=== PATIENT | female | born 1945 | race Caucasian/White ===

== ENCOUNTER 2017-08-20 17:20 | Emergency (ER) | payer MEDICARE, BC ==
[~2017-08-20] VITALS: Ht 165.1 cm; Wt 80.0 kg
[2017-08-20] MEDS ORDERED: nitroGLYCERIN 0.4mg SUBLingual tab SL PRN (19:10)
[2017-08-20] MEDS ORDERED: hydrALAZINE 20mg/ml inj. IV ONE (19:10)
[2017-08-20] MEDS ORDERED: aspirin 81mg tab.chew PO ONE (19:10)
[2017-08-20 19:29] LABS: BASOPHILS # (AUTO) 0.1 X10'3 (0-0.2); BASOPHILS % (AUTO) 0.6 % (0-1); EOSINOPHILS # (AUTO) 0.1 X10'3 (0-0.9); EOSINOPHILS % (AUTO) 0.7 % (0-6); HEMATOCRIT 38.4 % (35.0-45.0); HEMOGLOBIN 13.1 g/dl (12.0-16.0); LYMPHOCYTES # (AUTO) 2.5 X10'3 (1.1-4.8); LYMPHOCYTES % (AUTO) 21.6 % (21-51); MEAN CORPUSCULAR HEMOGLOBIN 27.9 PG (27.0-31.0); MEAN CORPUSCULAR VOLUME 81.9 FL (78-98); MEAN PLATELET VOLUME 9.1 FL (7.4-10.4); MONOCYTES # (AUTO) 0.7 X10'3 (0-0.9); MONOCYTES % (AUTO) 6.3 % (2-12); NEUTROPHILS # (AUTO) 8.1 X10'3 (1.8-7.7); NEUTROPHILS % (AUTO) 70.8 % (42-75); PLATELET COUNT 267 X10'3 (140-440); RED BLOOD COUNT 4.69 X10'6 (4.20-5.60); RED CELL DISTRIBUTION WIDTH 16.6 % (11.5-14.5); WHITE BLOOD COUNT 11.4 X10'3 (4.5-11.0)
[2017-08-20 19:51] LABS: ALANINE AMINOTRANSFERASE 23 U/L (12-78); ALBUMIN/GLOBULIN RATIO 1.2 (1.1-1.5); ALKALINE PHOSPHATASE 108 IU/L (46-116); ANION GAP 9 (8-16); ASPARTATE AMINO TRANSFERASE 14 U/L (10-37); BILIRUBIN,TOTAL 0.4 MG/DL (0.1-1.0); BLOOD UREA NITROGEN 12 MG/DL (7-18); BUN/CREATININE RATIO 17.4 (6.6-38.0); CALCIUM 8.9 MG/DL (8.5-10.1); CHLORIDE 103 MMOL/L (99-107); CREATININE 0.69 MG/DL (0.40-0.90); GLUCOSE 100 MG/DL (70-104); MAGNESIUM 2.2 MG/DL (1.5-2.4); POTASSIUM 3.9 MMOL/L (3.5-5.1); SODIUM 143 MMOL/L (135-145); TOTAL CARBON DIOXIDE 31.2 MMOL/L (24-32); TOTAL PROTEIN 7.4 G/DL (6.4-8.2); eGFR 84 ML/MIN
[2017-08-20] MEDS ORDERED: HYDR-4069 PO (20:31)
[2017-08-20 20:43] VITALS: BP 145/73
== END 2017-08-20 20:43 | disposition home or self-care (01) ==
LOC: ER 17:21
DX: I10 Essential (primary) hypertension (principal); I25.2 Old myocardial infarction
CPT/HCPCS: 36415; 71045; 80053; 83735; 83880; 84484; 85025; 93005; 96374; 99285; J0360

== ENCOUNTER 2020-04-04 11:02 | Emergency (ER) | payer MEDICARE, BC ==
[~2020-04-04] VITALS: Ht 165.1 cm; Wt 91.9 kg
[~2020-04-04 11:02] MED LIST: AMIO200T61 PO; APIX5TAB3 PO; ASPI-611 PO; ATOR40TA72 PO; CARV-50 PO; CHOL10002 PO; GABA-530 PO; HYDR-3972 PO; LISI40TA4 PO; PARO40TA4 PO; SPIR25TA PO
[2020-04-04 12:03] LABS: BASOPHILS # (AUTO) 0.1 X10'3 (0-0.2); BASOPHILS % (AUTO) 0.7 % (0-1); EOSINOPHILS # (AUTO) 0.1 X10'3 (0-0.9); EOSINOPHILS % (AUTO) 1.6 % (0-6); HEMATOCRIT 38.4 % (35.0-45.0); HEMOGLOBIN 12.5 g/dl (12.0-16.0); LYMPHOCYTES # (AUTO) 1.8 X10'3 (1.1-4.8); MEAN CORPUSCULAR HEMOGLOBIN 27.1 PG (27.0-31.0); MEAN CORPUSCULAR HGB CONC 32.4 g/dL (33.0-36.5); MEAN CORPUSCULAR VOLUME 83.6 FL (78-98); MEAN PLATELET VOLUME 8.4 FL (7.4-10.4); MONOCYTES # (AUTO) 0.7 X10'3 (0-0.9); MONOCYTES % (AUTO) 8.8 % (2-12); NEUTROPHILS # (AUTO) 4.8 X10'3 (1.8-7.7); NEUTROPHILS % (AUTO) 64.9 % (42-75); PLATELET COUNT 497 X10'3 (140-440); RED CELL DISTRIBUTION WIDTH 16.1 % (11.5-14.5); WHITE BLOOD COUNT 7.4 X10'3 (4.5-11.0)
[2020-04-04 12:21] LABS: ALANINE AMINOTRANSFERASE 24 U/L (12-78); ALBUMIN 3.9 G/DL (3.4-5.0); ALKALINE PHOSPHATASE 110 IU/L (46-116); ANION GAP 6 (8-16); ASPARTATE AMINO TRANSFERASE 14 U/L (10-37); BILIRUBIN,TOTAL 0.5 MG/DL (0.1-1.0); BLOOD UREA NITROGEN 17 MG/DL (7-18); BUN/CREATININE RATIO 15.6 (6.6-38.0); CALCIUM 9.3 MG/DL (8.5-10.1); CHLORIDE 100 MMOL/L (99-107); CREATININE 1.09 MG/DL (0.40-0.90); GLUCOSE 99 MG/DL (70-104); SODIUM 138 MMOL/L (135-145); TOTAL CARBON DIOXIDE 31.7 MMOL/L (24-32); TOTAL PROTEIN 7.7 G/DL (6.4-8.2); eGFR 49 ML/MIN
[2020-04-04 14:08] LABS: CLARITY,URINE SLIGHTLY CLOUDY (Clear); COLOR,URINE YELLOW (Yellow); GLUCOSE, URINE NEGATIVE (Neg); KETONES,URINE NEGATIVE (Neg); LEUKOCYTE ESTERASE ,URINE SMALL (Neg); NITRITES, URINE NEGATIVE (Neg); OCCULT BLOOD,URINE NEGATIVE (Neg); PROTEIN,URINE NEGATIVE (Neg); UROBILINOGEN,URINE 0.2 E.U/dL (0.2-1.0)
[2020-04-04 14:14] LABS: UA COLLECTION TYPE CLN CATCH MIDSTREAM
[2020-04-04 14:19] LABS: BACTERIA,URINE FEW /HPF (Neg); SQUAMOUS EPITHELIAL CELL,UR MODERATE /LPF (FEW); TRANSITIONAL EPI CELLS,URINE FEW /HPF
[2020-04-04 14:20] LABS: RBC,URINE 0-2 /HPF (0-2)
[2020-04-04] MEDS ORDERED: CEPH500C5 PO (15:46)
[2020-04-04 15:51] VITALS: BP 165/55
== END 2020-04-04 16:21 | disposition home or self-care (01) ==
LOC: ER 11:03
DX: E04.1 Nontoxic single thyroid nodule (principal); N39.0 Urinary tract infection, site not specified; M51.87 Other intervertebral disc disorders, lumbosacral region; R06.02 Shortness of breath; M79.605 Pain in left leg; M79.604 Pain in right leg; R53.1 Weakness; I48.91 Unspecified atrial fibrillation; I10 Essential (primary) hypertension; I25.2 Old myocardial infarction; Z79.82 Long term (current) use of aspirin; Z79.2 Long term (current) use of antibiotics; Z79.899 Other long term (current) drug therapy
CPT/HCPCS: 36415; 71045; 72128; 72131; 80053; 81001; 83880; 84484; 85025; 87088; 93005; 99285

== ENCOUNTER 2020-10-17 10:05 | Outpatient (CLI) | payer MEDICARE, BC ==
[~2020-10-17 10:05] MED LIST changes: +AMIO200T27 PO; -AMIO200T61 PO; -APIX5TAB3 PO; -CARV-50 PO; +HYDR-4070 PO; +LISI40TA13 PO; -LISI40TA4 PO; -SPIR25TA PO; +SPIR25TA5 PO; +WARF3TAB56 PO; +metoprolol tartrate tablet PO
[2020-10-17 10:34] LABS: TOTAL HEMOGLOBIN 13.2 G/dl (12.0-16.0)
== END 2020-10-17 23:59 | disposition home or self-care (01) ==
LOC: RT 10:05
PROVIDERS: ATTEND Internal Medicine Cardiovascular Disease
DX: I51.7 Cardiomegaly (principal); R06.02 Shortness of breath; M48.56XA Collapsed vertebra, not elsewhere classified, lumbar region, initial encounter for fracture; M47.814 Spondylosis without myelopathy or radiculopathy, thoracic region; Z79.899 Other long term (current) drug therapy
CPT/HCPCS: 71046; 85018; 94010; 94727; 94729

== ENCOUNTER 2021-01-29 05:57 | Day surgery (SDC) | payer MEDICARE, BC ==
[2021-01-28 11:51] LABS: BASOPHILS # (AUTO) 0.1 X10'3 (0-0.2); BASOPHILS % (AUTO) 0.7 % (0-1); EOSINOPHILS # (AUTO) 0.2 X10'3 (0-0.9); HEMATOCRIT 36.8 % (35.0-45.0); HEMOGLOBIN 12.3 g/dl (12.0-16.0); LYMPHOCYTES # (AUTO) 1.6 X10'3 (1.1-4.8); LYMPHOCYTES % (AUTO) 19.8 % (21-51); MEAN CORPUSCULAR HGB CONC 33.4 g/dL (33.0-36.5); MEAN CORPUSCULAR VOLUME 83.7 FL (78-98); MEAN PLATELET VOLUME 8.9 FL (7.4-10.4); MONOCYTES # (AUTO) 0.8 X10'3 (0-0.9); MONOCYTES % (AUTO) 9.6 % (2-12); NEUTROPHILS # (AUTO) 5.6 X10'3 (1.8-7.7); NEUTROPHILS % (AUTO) 67.9 % (42-75); PLATELET COUNT 292 X10'3 (140-440); RED CELL DISTRIBUTION WIDTH 15.1 % (11.5-14.5); WHITE BLOOD COUNT 8.2 X10'3 (4.5-11.0)
[2021-01-28 12:05] LABS: PARTIAL THROMBOPLASTIN TIME 27 SECONDS (22-32)
[2021-01-28 12:07] LABS: ALBUMIN 3.9 G/DL (3.4-5.0); ANION GAP 11 (8-16); BLOOD UREA NITROGEN 16 MG/DL (7-18); BUN/CREATININE RATIO 15.7 (6.6-38.0); CALCIUM 8.5 MG/DL (8.5-10.1); CHLORIDE 104 MMOL/L (99-107); CREATININE 1.02 MG/DL (0.40-0.90); GLUCOSE 101 MG/DL (70-104); POTASSIUM 4.1 MMOL/L (3.5-5.1); SODIUM 143 MMOL/L (135-145); TOTAL CARBON DIOXIDE 28.3 MMOL/L (24-32); eGFR 53 ML/MIN
[~2021-01-29] VITALS: Ht 165.1 cm; Wt 93.0 kg
[2021-01-29] VITALS (11 sets, daily range): BP systolic 116–169; BP diastolic 43–81
[2021-01-29] MEDS ORDERED: cefazolin/dext.iso 2gm/100ml 100 ML IV ONE (06:15)
[2021-01-29] MEDS ORDERED: APIX5TAB3 PO (06:23)
[2021-01-29] MEDS ORDERED: NITR0.4T48 (06:23)
[2021-01-29] MEDS ORDERED: METO25TA6 PO (06:23)
[2021-01-29] MEDS ORDERED: OMEP20CA15 PO (06:25)
[2021-01-29] MEDS ORDERED: ceFAZolin 1000mg inj ONE (07:17)
[2021-01-29] MEDS ORDERED: fentaNYL/PF 50MCG/1 ML 2ML syringe ONE ×2 (07:18→08:57)
[2021-01-29] MEDS ORDERED: midazolam 1 mg/ML 2ml injection ONE ×2 (07:18→08:44)
[2021-01-29] MEDS ORDERED: LIDOcaine 1% W/epiNEPHrine 1:100,000 20ml vial ONE ×2 (07:18→08:26)
[2021-01-29] MEDS ORDERED: hydrALAZINE 20mg/ml inj. IV ONE (08:32)
[2021-01-29] MEDS ORDERED: HYDROmorphone 1 mg/ml syringe ONE (09:11)
[2021-01-29] MEDS ORDERED: HYDROcodone/acetaminophen 10/325mg tab PO PRN (10:15)
[2021-01-29] MEDS ORDERED: HYDROcodone/acetaminophen 5mg/325mg tablet PO PRN (10:15)
[2021-01-29] MEDS ORDERED: vancomycin/NS 1 GM ADD-VANTAGE 250 ML X 1 DOSE IV ONE (11:00)
== END 2021-01-29 16:00 | disposition home or self-care (01) ==
LOC: SSTAY O 05:57
PROVIDERS: ATTEND Internal Medicine Cardiovascular Disease
DX: I49.5 Sick sinus syndrome (principal); I48.91 Unspecified atrial fibrillation; I25.10 Atherosclerotic heart disease of native coronary artery without angina pectoris; I11.0 Hypertensive heart disease with heart failure; I50.9 Heart failure, unspecified; I25.2 Old myocardial infarction; M19.90 Unspecified osteoarthritis, unspecified site; G89.29 Other chronic pain; E78.49 Other hyperlipidemia; E66.9 Obesity, unspecified; Z68.34 Body mass index [BMI] 34.0-34.9, adult; Z79.82 Long term (current) use of aspirin; Z79.01 Long term (current) use of anticoagulants; Z79.899 Other long term (current) drug therapy; Z90.710 Acquired absence of both cervix and uterus; Z98.890 Other specified postprocedural states; Z82.49 Family history of ischemic heart disease and other diseases of the circulatory system; Z80.6 Family history of leukemia
CPT/HCPCS: 33208; 36415; 71046; 80048; 85025; 85610; 85730; 93005; 99152; 99153; C1785; C1894; C1898; J0360; J0690; J1170; J2250; J3010; J3370; A4565; A4620; A6258; A6449

== ENCOUNTER 2021-09-04 06:59 | Day surgery (SDC) | payer MEDICARE, BC ==
[2021-09-02 10:27] LABS: BASOPHILS % (AUTO) 0.6 % (0-1); EOSINOPHILS # (AUTO) 0.1 X10'3 (0-0.9); EOSINOPHILS % (AUTO) 1.2 % (0-6); HEMATOCRIT 37.5 % (35.0-45.0); HEMOGLOBIN 12.4 g/dl (12.0-16.0); MEAN CORPUSCULAR HEMOGLOBIN 27.7 PG (27.0-31.0); MEAN PLATELET VOLUME 8.9 FL (7.4-10.4); MONOCYTES # (AUTO) 0.7 X10'3 (0-0.9); MONOCYTES % (AUTO) 9.4 % (2-12); NEUTROPHILS # (AUTO) 5.9 X10'3 (1.8-7.7); NEUTROPHILS % (AUTO) 75.8 % (42-75); PLATELET COUNT 348 X10'3 (140-440); RED BLOOD COUNT 4.47 X10'6 (4.20-5.60); WHITE BLOOD COUNT 7.8 X10'3 (4.5-11.0)
[2021-09-02 10:44] LABS: ALBUMIN 3.7 G/DL (3.4-5.0); ANION GAP 10 (8-16); BLOOD UREA NITROGEN 17 MG/DL (7-18); CALCIUM 9.1 MG/DL (8.5-10.1); CHLORIDE 102 MMOL/L (99-107); GLUCOSE 99 MG/DL (70-104); POTASSIUM 4.6 MMOL/L (3.5-5.1); SODIUM 139 MMOL/L (135-145); TOTAL CARBON DIOXIDE 26.8 MMOL/L (24-32); eGFR 54 ML/MIN
[2021-09-04] VITALS (12 sets, daily range): BP systolic 102–135; BP diastolic 46–85
[~2021-09-04] VITALS: Ht 165.1 cm; Wt 87.0 kg
[~2021-09-04 06:59] MED LIST changes: +APIX5TAB3 PO; +METO25TA6 PO; +NITR0.4T48; +OMEP20CA15 PO; -WARF3TAB56 PO; -metoprolol tartrate tablet PO
[2021-09-04] MEDS ORDERED: amiodarone 150mg/dext, iso-os 100 ML IV ONE (07:20)
[2021-09-04] MEDS ORDERED: MIDAZolam 1mg/ml 10ml vial IV ONE (07:20)
[2021-09-04] MEDS ORDERED: morphine 10mg/ml inj. IV ONE (07:20)
[2021-09-04] MEDS ORDERED: atropine 0.1mg/ml 10ml syringe IV ONE (07:20)
[2021-09-04] MEDS ORDERED: HYDR-3965 PO (08:42)
[2021-09-04] MEDS ORDERED: SPIR25TA5 PO (08:42)
== END 2021-09-04 11:45 | disposition home or self-care (01) ==
LOC: SSTAY O 06:59
PROVIDERS: ATTEND Internal Medicine Cardiovascular Disease
DX: I48.91 Unspecified atrial fibrillation (principal); I25.10 Atherosclerotic heart disease of native coronary artery without angina pectoris; I11.0 Hypertensive heart disease with heart failure; I50.9 Heart failure, unspecified; I25.2 Old myocardial infarction; E78.5 Hyperlipidemia, unspecified; M19.90 Unspecified osteoarthritis, unspecified site; G89.29 Other chronic pain; E66.9 Obesity, unspecified; Z68.31 Body mass index [BMI] 31.0-31.9, adult; Z79.899 Other long term (current) drug therapy; Z79.01 Long term (current) use of anticoagulants; Z98.890 Other specified postprocedural states; Z79.82 Long term (current) use of aspirin
CPT/HCPCS: 36415; 80048; 85025; 85610; 92960; 93005; J2250; J2274

== ENCOUNTER 2021-10-23 12:00 | Outpatient (CLI) | payer MEDICARE, BC ==
[~2021-10-23 12:00] MED LIST changes: +HYDR-3965 PO; -HYDR-3972 PO
== END 2021-10-23 23:59 | disposition home or self-care (01) ==
LOC: CARD DIAG 12:00
PROVIDERS: ATTEND Internal Medicine Cardiovascular Disease
DX: I05.8 Other rheumatic mitral valve diseases (principal); R91.8 Other nonspecific abnormal finding of lung field; I48.91 Unspecified atrial fibrillation; Z79.82 Long term (current) use of aspirin; Z96.611 Presence of right artificial shoulder joint; Z79.899 Other long term (current) drug therapy
CPT/HCPCS: 71046; 93306; 94010; 94727; 94729

== ENCOUNTER 2022-02-08 07:17 | Emergency (ER) | payer MEDICARE, OTHER ==
[~2022-02-08] VITALS: Ht 165.1 cm; Wt 92.8 kg
[2022-02-08 08:48] LABS: BASOPHILS % (AUTO) 0.5 % (0-1); EOSINOPHILS % (AUTO) 0.6 % (0-6); HEMATOCRIT 34.3 % (35.0-45.0); HEMOGLOBIN 11.3 g/dl (12.0-16.0); LYMPHOCYTES # (AUTO) 0.5 X10'3 (1.1-4.8); MEAN CORPUSCULAR HEMOGLOBIN 27.8 PG (27.0-31.0); MEAN CORPUSCULAR HGB CONC 33.1 g/dL (33.0-36.5); MEAN CORPUSCULAR VOLUME 84.1 FL (78-98); MEAN PLATELET VOLUME 8.9 FL (7.4-10.4); MONOCYTES # (AUTO) 0.5 X10'3 (0-0.9); MONOCYTES % (AUTO) 6.8 % (2-12); NEUTROPHILS # (AUTO) 6.4 X10'3 (1.8-7.7); NEUTROPHILS % (AUTO) 85.1 % (42-75); PLATELET COUNT 291 X10'3 (140-440); RED BLOOD COUNT 4.07 X10'6 (4.20-5.60); RED CELL DISTRIBUTION WIDTH 15.4 % (11.5-14.5); WHITE BLOOD COUNT 7.5 X10'3 (4.5-11.0)
[2022-02-08 09:02] LABS: ALANINE AMINOTRANSFERASE 47 U/L (12-78); ALBUMIN 3.9 G/DL (3.4-5.0); ALBUMIN/GLOBULIN RATIO 1.1 (1.1-1.5); ALKALINE PHOSPHATASE 122 IU/L (46-116); ANION GAP 8 (8-16); ASPARTATE AMINO TRANSFERASE 26 U/L (10-37); BILIRUBIN,TOTAL 0.7 MG/DL (0.1-1.0); BLOOD UREA NITROGEN 11 MG/DL (7-18); BUN/CREATININE RATIO 9.2 (6.6-38.0); CALCIUM 9.1 MG/DL (8.5-10.1); CHLORIDE 101 MMOL/L (99-107); GLUCOSE 103 MG/DL (70-104); POTASSIUM 4.5 MMOL/L (3.5-5.1); SODIUM 139 MMOL/L (135-145); TOTAL CARBON DIOXIDE 30.1 MMOL/L (24-32); TOTAL PROTEIN 7.5 G/DL (6.4-8.2); eGFR 44 ML/MIN
[2022-02-08] MEDS ORDERED: furosemide 40mg/4ml inj IV ONE (10:00)
[2022-02-08] MEDS ORDERED: BEBTELOVIMAB 175 MG/2 ML VIAL IV ONE (14:10)
[2022-02-08 14:25] VITALS: BP 177/99
--- NOTE | 2022-02-08 14:30 | NUR ---
Pt given and understands d/c instructions. IV d/c instructions. Ambulatory with a steady gait.
== END 2022-02-08 14:30 | disposition home or self-care (01) ==
LOC: ER 07:18
DX: U07.1 COVID-19 (principal); I11.0 Hypertensive heart disease with heart failure; E78.00 Pure hypercholesterolemia, unspecified; Z79.899 Other long term (current) drug therapy
CPT/HCPCS: 36415; 71045; 80053; 83880; 84484; 85025; 87502; 87503; 87811; 93005; 96374; 99285; J1940; M0222; Q0222

== ENCOUNTER 2022-03-20 07:26 | Day surgery (SDC) | payer MEDICARE, OTHER ==
[2022-03-19 12:11] LABS: BASOPHILS # (AUTO) 0.1 X10'3 (0-0.2); BASOPHILS % (AUTO) 0.8 % (0-1); EOSINOPHILS # (AUTO) 0.2 X10'3 (0-0.9); EOSINOPHILS % (AUTO) 1.9 % (0-6); HEMATOCRIT 35.1 % (35.0-45.0); HEMOGLOBIN 11.5 g/dl (12.0-16.0); LYMPHOCYTES # (AUTO) 1.1 X10'3 (1.1-4.8); LYMPHOCYTES % (AUTO) 11.7 % (21-51); MEAN CORPUSCULAR HGB CONC 32.6 g/dL (33.0-36.5); MEAN CORPUSCULAR VOLUME 82.9 FL (78-98); MEAN PLATELET VOLUME 8.8 FL (7.4-10.4); MONOCYTES # (AUTO) 0.8 X10'3 (0-0.9); MONOCYTES % (AUTO) 8.2 % (2-12); NEUTROPHILS # (AUTO) 7.2 X10'3 (1.8-7.7); NEUTROPHILS % (AUTO) 77.4 % (42-75); PLATELET COUNT 344 X10'3 (140-440); RED BLOOD COUNT 4.24 X10'6 (4.20-5.60); RED CELL DISTRIBUTION WIDTH 16.6 % (11.5-14.5); WHITE BLOOD COUNT 9.3 X10'3 (4.5-11.0)
[2022-03-19 12:30] LABS: ALBUMIN 3.8 G/DL (3.4-5.0); ANION GAP 8 (8-16); BLOOD UREA NITROGEN 14 MG/DL (7-18); BUN/CREATININE RATIO 14.1 (6.6-38.0); CALCIUM 9.2 MG/DL (8.5-10.1); CHLORIDE 104 MMOL/L (99-107); CREATININE 0.99 MG/DL (0.40-0.90); GLUCOSE 93 MG/DL (70-104); POTASSIUM 4.2 MMOL/L (3.5-5.1); SODIUM 140 MMOL/L (135-145); TOTAL CARBON DIOXIDE 27.7 MMOL/L (24-32); eGFR 55 ML/MIN
[2022-03-20] VITALS (13 sets, daily range): BP systolic 131–160; BP diastolic 62–100
[~2022-03-20] VITALS: Ht 165.1 cm; Wt 91.9 kg
[2022-03-20] MEDS ORDERED: MIDAZolam 1mg/ml 10ml vial IV ONE (07:45)
[2022-03-20] MEDS ORDERED: LORazepam 0.5 MG tablet PO ONE (07:45)
[2022-03-20] MEDS ORDERED: diphenhydrAMINE 25mg capsule PO ONE (07:45)
[2022-03-20] MEDS ORDERED: amiodarone 150mg/dext, iso-os 100 ML IV ONE (07:45)
[2022-03-20] MEDS ORDERED: morphine 10mg/ml inj. IV ONE (07:45)
[2022-03-20] MEDS ORDERED: atropine 0.1mg/ml 10ml syringe IV ONE (07:45)
== END 2022-03-20 10:10 | disposition home or self-care (01) ==
LOC: SSTAY O 07:26
PROVIDERS: ATTEND Internal Medicine Cardiovascular Disease
DX: I48.0 Paroxysmal atrial fibrillation (principal); I49.5 Sick sinus syndrome; I10 Essential (primary) hypertension; E78.5 Hyperlipidemia, unspecified; Z95.0 Presence of cardiac pacemaker; I25.10 Atherosclerotic heart disease of native coronary artery without angina pectoris; Z79.899 Other long term (current) drug therapy; Z98.890 Other specified postprocedural states; Z79.01 Long term (current) use of anticoagulants; Z90.710 Acquired absence of both cervix and uterus
CPT/HCPCS: 36415; 80048; 85025; 85610; 92960; 93005; J2250; J2274; J7030; A4620

== ENCOUNTER 2022-09-09 06:58 | Inpatient (IN) | payer MEDICARE, OTHER ==
[2022-09-01 16:32] LABS: BASOPHILS % (AUTO) 0.5 % (0-1); EOSINOPHILS # (AUTO) 0.1 X10'3 (0-0.9); EOSINOPHILS % (AUTO) 1.8 % (0-6); LYMPHOCYTES # (AUTO) 1.2 X10'3 (1.1-4.8); LYMPHOCYTES % (AUTO) 16.7 % (21-51); MEAN CORPUSCULAR HEMOGLOBIN 28.6 PG (27.0-31.0); MEAN CORPUSCULAR HGB CONC 32.6 g/dL (33.0-36.5); MEAN CORPUSCULAR VOLUME 87.8 FL (78-98); MEAN PLATELET VOLUME 8.6 FL (7.4-10.4); MONOCYTES # (AUTO) 0.8 X10'3 (0-0.9); MONOCYTES % (AUTO) 11.3 % (2-12); NEUTROPHILS # (AUTO) 5.2 X10'3 (1.8-7.7); NEUTROPHILS % (AUTO) 69.7 % (42-75); PRE OP HEMATOCRIT 36.9 % (35.0-45.0); PRE OP PLATELET COUNT 294 X10'3 (140-440); RED CELL DISTRIBUTION WIDTH 15.2 % (11.5-14.5)
[2022-09-01 16:41] LABS: ALBUMIN 3.8 G/DL (3.4-5.0); ALBUMIN/GLOBULIN RATIO 1.1 (1.1-1.5); ALKALINE PHOSPHATASE 102 IU/L (46-116); BLOOD UREA NITROGEN 15 MG/DL (7-18); BUN/CREATININE RATIO 15.8 (10.0-20.0); CHLORIDE 102 MMOL/L (99-107); CREATININE 0.95 MG/DL (0.40-0.90); PRE OP ALT 16 U/L (30-65); PRE OP ANION GAP 6 (8-16); PRE OP AST 17 U/L (10-37); PRE OP BILIRUB, TOTAL 0.4 MG/DL (0.0-1.0); PRE OP GLUCOSE 87 MG/DL (70-104); PRE OP POTASSIUM 4.1 MMOL/L (3.4-5.1); PRE OP SODIUM 137 MMOL/L (135-145); TOTAL CARBON DIOXIDE 29.3 MMOL/L (24-32); TOTAL PROTEIN 7.3 G/DL (6.4-8.2); eGFR 58 ML/MIN
[2022-09-09] VITALS (22 sets, daily range): BP systolic 131–178; BP diastolic 63–77
[~2022-09-09] VITALS: Ht 165.1 cm; Wt 90.7 kg
[~2022-09-09 06:58] MED LIST changes: -ASPI-611 PO; +DOCUMENT DATE & TIME OF BETA-BLOCKER PO ONE; -HYDR-3965 PO; -HYDR-4070 PO; +IBUP-1985 PO; -NITR0.4T48; +acetaminophen 325mg tablet PO ONE; +cefazolin 2gm/D5W 100mL 100 ML IV ONE; +celeCOXIB 100mg capsule PO ONE; +famotidine 20mg tablet PO ONE; +gabapentin 300mg capsule PO ONE; +metoclopramide 5 mg/ml inj IV ONE; +oxyCODONE SR 10mg (sust. release) tab -2 tabs (20mg) PO ONE; +tranexamic acid inj. 1,000 MG in normal saline IV soln 100ML IV ONE; +vancomycin 1,500 MG in NS 300ml IV soln IV ONE
[2022-09-09] MEDS ORDERED: bisacodyl 10mg suppository rectal RC PRN (07:25)
[2022-09-09] MEDS ORDERED: diphenhydrAMINE 25mg capsule PO PRN ×2 (07:25)
[2022-09-09] MEDS ORDERED: ondansetron/PF 4mg/2ml inj IV PRN ×2 (07:25→08:50)
[2022-09-09] MEDS ORDERED: HYDROmorphone inj. 0.5 MG/0.5 ML DISP.SYRIN IV PRN (07:25)
[2022-09-09] MEDS ORDERED: HYDROmorphone 1 mg/ml syringe IV PRN (07:25)
[2022-09-09] MEDS ORDERED: naloxone 0.4 mg/ml inj IV PRN (07:25)
[2022-09-09] MEDS ORDERED: magnesium hydroxide 30ml (MOM) UD suspension PO PRN (07:25)
[2022-09-09] MEDS: ringers solution, lacted 1,000 ML IV SCH ×3 (08:05→16:24)
--- NOTE | 2022-09-09 08:20 | NUR ---
Pt SHOWERED X 5 PER PROTOCOL W/ CHG, PT ALSO STATES SHE READ OVER HER BOOKLET AND STATES READINESS FOR TOTAL KNEE. PALPABLE PEDAL PULSE TO LEFT FOOT MARKED W/ SKIN MARKER. GOOD CSM TO LEFT FOOT.
[2022-09-09] MEDS ORDERED: meperidine/PF 25mg/ml syringe IV PRN ×3 (08:50)
[2022-09-09] MEDS ORDERED: proCHLORperazine 10 MG/2 ml inj IV PRN (08:50)
[2022-09-09] MEDS ORDERED: morphine 4 MG/ML inj SYRINge IV PRN (08:50)
[2022-09-09] MEDS ORDERED: ringers solution, lacted 1,000 ML IV SCH (08:50)
[2022-09-09] MEDS ORDERED: morphine 2 MG/ML inj. syringe IV PRN (08:50)
[2022-09-09] MEDS ORDERED: epiNEPHrine 1 mg/ml inj ONE (09:33)
[2022-09-09] MEDS ORDERED: cloNIDine hcl/PF 100mcg/ml inj ONE (09:33)
[2022-09-09] MEDS ORDERED: ROPIVAcaine 0.5% (5mg/ml) 30ml vial ONE ×2 (09:33→10:18)
[2022-09-09] MEDS ORDERED: vancomycin 1,000mg inj ONE (09:34)
[2022-09-09] MEDS ORDERED: MIDAZolam 1 MG/ML 5ML VIAL ONE (09:55)
[2022-09-09] MEDS ORDERED: BUPIVAcaine/PF 7.5mg/ml (0.75%) 10ml vial ONE (11:31)
--- NOTE | 2022-09-09 12:00 | NUR ---
TOTAL KNEE Received from OR via BED, accompanied by Anesthesiologist and report given by Anesthesiologist. PATIENT WAKING UP, NO S/S OF PAIN, V/S WNL, SCD ON, 20G TO RUE, WILMER drsg to LEFT KNEE CDI with ON Q BALL AT 2ML/HR TO BE STARTED WHEN AVAILABLE.
[2022-09-09] MEDS ORDERED: ROPIVAcaine 0.2% (10 MG/5 ML) BOLUS INJECTION ADDCANAL PRN (12:06)
[2022-09-09] MEDS ORDERED: ROPIVAcaine 0.2%/PF PUMP/bolus 545 ML ADDCANAL SCH (12:07)
[2022-09-09] MEDS: HYDROcodone/acetaminophen 10/325mg tab PO PRN ×2 (12:09→22:40)
--- NOTE | 2022-09-09 14:10 | NUR ---
PATIENT ORIENTED X4 BUT SLEEPY, DENIES PAIN, V/S WNL, SCD ON, 20G TO RUE, WILMER drsg to LEFT KNEE CDI with ON Q BALL AT 2ML/HR . PATIENT TAKEN TO ROOM WITH ALL BELONGINGS AND HOOKED UP TO MONITORS IN ROOM AND GIVEN CALL LIGHT, REPORT GIVEN TO RN WHO HAS TAKEN OVER PATIENT CARE.
--- NOTE | 2022-09-09 14:39 | NUR ---
Patient in room [facility]. I have received report from KAVEH Meyer and had the opportunity to ask questions and assume patient care.
[2022-09-09] MEDS ORDERED: NORMAL SALINE IV ONE (15:00)
[2022-09-09] MEDS ORDERED: TRANEXAMIC ACID IV ONE (15:00)
[2022-09-09] MEDS ORDERED: acetaminophen 325mg tablet PO PRN (16:00)
[2022-09-09] MEDS ORDERED: HYDROcodone/acetaminophen 10/325mg tab PO PRN (16:00)
--- NOTE | 2022-09-09 16:06 | NUR ---
waiting tranexamic to get here from pharmacy.
[2022-09-09] MEDS: potassium cl 20mEq in 1/2 NS 1,000 ML IV SCH ×2 (16:29→22:38)
--- NOTE | 2022-09-09 18:15 | NUR ---
Patient in room [facility]. I have received report from RENETTA Tamez and had the opportunity to ask questions and assume patient care.
--- NOTE | 2022-09-09 18:20 | NUR ---
Problems reprioritized. Patient report given, questions answered & plan of care reviewed with KAVEH Keene.
--- NOTE | 2022-09-09 18:35 | NUR ---
STEEP TENDER documentation: I have reviewed and agree with all interventions, assessments performed and documented by Dashawn JACKSON II.
[2022-09-09] MEDS ORDERED: VANCOMYCIN 1,500MG inj. 1,500 MG in normal saline 500ml IV soln 300 ML IV ONE (20:00)
[2022-09-09] MEDS: gabapentin 300mg capsule PO SCH (20:38)
[2022-09-09] MEDS: metoprolol tartrate 25mg tablet PO SCH (20:40)
[2022-09-09] MEDS: ascorbic acid 500mg tablet PO SCH (20:40)
[2022-09-09] MEDS ORDERED: spironolactone 25 MG tablet PO SCH (21:00)
[2022-09-09] MEDS ORDERED: amiodarone 200mg tablet PO SCH (21:00)
[2022-09-09] MEDS ORDERED: sennosides 8.6mg tablet PO SCH (21:00)
[2022-09-09] MEDS ORDERED: apixaban 5mg tablet PO SCH (21:00)
[2022-09-09] MEDS ORDERED: atorvastatin 20mg tablet PO SCH (21:00)
[2022-09-10 02:00] VITALS: BP 172/69
[2022-09-10] MEDS: potassium cl 20mEq in 1/2 NS 1,000 ML IV SCH ×2 (04:54→15:00)
[2022-09-10] MEDS: HYDROcodone/acetaminophen 10/325mg tab PO PRN ×2 (04:58→11:21)
--- NOTE | 2022-09-10 06:47 | NUR ---
Problems reprioritized. Patient report given, questions answered & plan of care reviewed with KAVEH Burroughs.
[2022-09-10 06:54] VITALS: BP 175/61
[2022-09-10 06:56] LABS: BASOPHILS % (AUTO) 0.1 % (0-1); EOSINOPHILS % (AUTO) 0 % (0-6); HEMATOCRIT 32.2 % (35.0-45.0); HEMOGLOBIN 10.4 g/dl (12.0-16.0); LYMPHOCYTES # (AUTO) 0.7 X10'3 (1.1-4.8); LYMPHOCYTES % (AUTO) 4.2 % (21-51); MEAN CORPUSCULAR HEMOGLOBIN 28.3 PG (27.0-31.0); MEAN CORPUSCULAR HGB CONC 32.4 g/dL (33.0-36.5); MEAN CORPUSCULAR VOLUME 87.2 FL (78-98); MEAN PLATELET VOLUME 8.8 FL (7.4-10.4); MONOCYTES # (AUTO) 1.2 X10'3 (0-0.9); MONOCYTES % (AUTO) 7.8 % (2-12); NEUTROPHILS # (AUTO) 13.8 X10'3 (1.8-7.7); NEUTROPHILS % (AUTO) 87.9 % (42-75); PLATELET COUNT 273 X10'3 (140-440); RED BLOOD COUNT 3.69 X10'6 (4.20-5.60); RED CELL DISTRIBUTION WIDTH 14.6 % (11.5-14.5); WHITE BLOOD COUNT 15.7 X10'3 (4.5-11.0)
--- NOTE | 2022-09-10 07:00 | NUR ---
Patient in room [facility]. I have received report from ramses cuba and had the opportunity to ask questions and assume patient care.
[2022-09-10 07:04] LABS: ANION GAP 5 (8-16); CHLORIDE 102 MMOL/L (99-107); POTASSIUM 4.1 MMOL/L (3.5-5.1); SODIUM 135 MMOL/L (135-145); TOTAL CARBON DIOXIDE 28.3 MMOL/L (24-32)
[2022-09-10] MEDS: ascorbic acid 500mg tablet PO SCH (07:14)
[2022-09-10] MEDS: gabapentin 300mg capsule PO SCH ×2 (07:14→14:22)
[2022-09-10] MEDS: metoprolol tartrate 25mg tablet PO SCH (07:16)
[2022-09-10] MEDS ORDERED: PARoxetine 20mg tablet PO SCH (08:00)
[2022-09-10] MEDS ORDERED: lisinopril 20mg tablet PO SCH (08:00)
[2022-09-10] MEDS ORDERED: pantoprazole 40mg Tablet.DR PO SCH (08:00)
[2022-09-10] MEDS ORDERED: multivitamins, therapeutics tablet PO SCH (08:00)
[2022-09-10] MEDS ORDERED: aspirin 325mg tablet PO SCH (08:30)
[2022-09-10 10:12] VITALS: BP 112/67
[2022-09-10] MEDS ORDERED: ondansetron 4mg rapidly disintigrating tab PO PRN (16:15)
--- NOTE | 2022-09-10 17:28 | NUR ---
Joint surgery consult: Pt s/p L knee surgery but discharged prior to RD visit this admit. Written high protein diet ed w/ RD contact information mailed to pt home address provided in EMR. Addendum: 09/10/22 at [address] Amended: Links added.
[2022-09-10] MEDS ORDERED: celeCOXIB 100mg capsule PO SCH (20:00)
== END 2022-09-10 16:57 | disposition home health service (06) | DRG 470 ==
LOC: PAS 06:58 → SUR 3N 07:27
PROVIDERS: ADMIT Orthopaedic Surgery; ATTEND Orthopaedic Surgery
PROC: 3E0T3BZ Introduction of Anesthetic Agent into Peripheral Nerves and Plexi, Percutaneous Approach (ICD-10-PCS; 2022-09-09)
PROC: 3E0T33Z Introduction of Anti-inflammatory into Peripheral Nerves and Plexi, Percutaneous Approach (ICD-10-PCS; 2022-09-09)
PROC: 0SRD0J9 Replacement of Left Knee Joint with Synthetic Substitute, Cemented, Open Approach (ICD-10-PCS; principal; 2022-09-09 09:50)
DX: M17.12 Unilateral primary osteoarthritis, left knee (principal); Z79.899 Other long term (current) drug therapy; Z71.6 Tobacco abuse counseling
CPT/HCPCS: 36415; 73560; 80051; 80053; 82948; 85025; 86885; 86900; 86901; 87081; 97110; 97116; 97161; 97530; A4215; A6449; A7000; C1713; C1776; G0378; J0171; J0690; J0735; J2175; J2250; J2765; J2795; J3370; J3480; J3490; J7040; J7060; J7120

== ENCOUNTER 2023-08-26 07:45 | Inpatient (IN) | payer MEDICARE, OTHER ==
[~2023-08-26] VITALS: Ht 165.1 cm; Wt 88.4 kg
[~2023-08-26 07:45] MED LIST changes: +AMI200T PO; -DOCUMENT DATE & TIME OF BETA-BLOCKER PO ONE; -IBUP-1985 PO; +METO50TA17 PO; -acetaminophen 325mg tablet PO ONE; -cefazolin 2gm/D5W 100mL 100 ML IV ONE; -celeCOXIB 100mg capsule PO ONE; -famotidine 20mg tablet PO ONE; -gabapentin 300mg capsule PO ONE; -metoclopramide 5 mg/ml inj IV ONE; -oxyCODONE SR 10mg (sust. release) tab -2 tabs (20mg) PO ONE; -tranexamic acid inj. 1,000 MG in normal saline IV soln 100ML IV ONE; -vancomycin 1,500 MG in NS 300ml IV soln IV ONE
[2023-08-26 08:52] LABS: BASOPHILS # (AUTO) 0.1 X10'3 (0-0.2); BASOPHILS % (AUTO) 0.7 % (0-1); EOSINOPHILS # (AUTO) 0.1 X10'3 (0-0.9); HEMATOCRIT 33.4 % (35.0-45.0); LYMPHOCYTES # (AUTO) 0.7 X10'3 (1.1-4.8); LYMPHOCYTES % (AUTO) 8.4 % (21-51); MEAN CORPUSCULAR HGB CONC 33.1 g/dL (33.0-36.5); MEAN CORPUSCULAR VOLUME 84.7 FL (78-98); MEAN PLATELET VOLUME 9.1 FL (7.4-10.4); MONOCYTES # (AUTO) 0.6 X10'3 (0-0.9); MONOCYTES % (AUTO) 7.5 % (2-12); NEUTROPHILS # (AUTO) 6.8 X10'3 (1.8-7.7); NEUTROPHILS % (AUTO) 82.4 % (42-75); PLATELET COUNT 267 X10'3 (140-440); RED BLOOD COUNT 3.94 X10'6 (4.20-5.60); RED CELL DISTRIBUTION WIDTH 16.3 % (11.5-14.5); WHITE BLOOD COUNT 8.2 X10'3 (4.5-11.0)
[2023-08-26 09:05] LABS: ALANINE AMINOTRANSFERASE 38 U/L (12-78); ALBUMIN 3.5 G/DL (3.4-5.0); ALKALINE PHOSPHATASE 107 IU/L (46-116); ANION GAP 11 (8-16); ASPARTATE AMINO TRANSFERASE 22 U/L (10-37); BLOOD UREA NITROGEN 16 MG/DL (7-18); BUN/CREATININE RATIO 15.7 (10.0-20.0); CALCIUM 8.7 MG/DL (8.5-10.1); CHLORIDE 107 MMOL/L (99-107); CREATININE 1.02 MG/DL (0.40-0.90); GLUCOSE 109 MG/DL (70-104); POTASSIUM 3.7 MMOL/L (3.5-5.1); SODIUM 146 MMOL/L (135-145); TOTAL PROTEIN 6.9 G/DL (6.4-8.2); eCRCL 39 ML/MIN; eGFR 53 ML/MIN
[2023-08-26 09:14] LABS: PRO BRAIN NATRIURETIC PEPTIDE 8341 PG/ML (0-450)
[2023-08-26] MEDS ORDERED: nitroGLYCERIN 0.4mg SUBLingual tab SL PRN (13:00)
[2023-08-26] MEDS: aspirin 325mg tablet PO ONE (13:00)
[2023-08-26] MEDS: diltiazem 5mg/ml 5ml inj. IV ONE (13:48)
[2023-08-26] MEDS: ondansetron/PF 4mg/2ml inj IV ONE (13:50)
[2023-08-26] MEDS: pantoprazole 40 MG vial IV ONE (13:50)
[2023-08-26] MEDS: LORazepam 2 mg/ml vial IV ONE (13:50)
[2023-08-26] MEDS ORDERED: magnesium 2GM in 50ml NS 50 ML IV PRN (14:10)
[2023-08-26] MEDS ORDERED: magnesium 4gm in 100ml NS 100 ML IV PRN (14:10)
[2023-08-26] MEDS ORDERED: potassium Cl 40MEQ/1/2NS 520ml 520 ML IV PRN (14:10)
[2023-08-26] MEDS ORDERED: magnesium hydroxide 30ml (MOM) UD suspension PO PRN (14:10)
[2023-08-26] MEDS ORDERED: potassium Cl 20 mEq SR tablet PO PRN (14:10)
[2023-08-26] MEDS ORDERED: ondansetron/PF 4mg/2ml inj IV PRN (14:10)
[2023-08-26] MEDS ORDERED: magnesium Cl slow-release 64mg tablet PO PRN (14:10)
[2023-08-26] MEDS ORDERED: acetaminophen 325mg tablet PO PRN (14:10)
[2023-08-26] MEDS ORDERED: mag hydrox/Alum hydrox/simeth 30ml oral suspension PO PRN (14:10)
[2023-08-26] MEDS ORDERED: furosemide 40mg/4ml inj IV SCH (14:15)
[2023-08-26] MEDS: amiodarone 200mg tablet PO ONE (14:54)
[2023-08-26] MEDS: lisinopril 20mg tablet PO ONE (14:57)
[2023-08-26] MEDS: furosemide 40mg/4ml inj IV SCH (14:57)
[2023-08-26] MEDS: acetaminophen 325mg tablet PO PRN (14:58)
[2023-08-26 17:56] VITALS: BP 152/92; PULSE 107; RESP 23; TEMP 97.5; O2SAT 94
[2023-08-26 18:00] VITALS: BP 169/105; PULSE 107; RESP 21; TEMP 97; O2SAT 90
[2023-08-26] MEDS: K and/or MAG REPLACEMENT MC SCH (20:00)
[2023-08-26] MEDS: atorvastatin 20mg tablet PO SCH (20:20)
[2023-08-26] MEDS: metoprolol tartrate 25mg tablet PO SCH (20:24)
[2023-08-26] MEDS: apixaban 5mg tablet PO SCH (20:25)
[2023-08-26] MEDS: amiodarone 200mg tablet PO SCH (20:25)
[2023-08-26 22:00] VITALS: BP 131/86; PULSE 84; RESP 15; TEMP 97.7; O2SAT 92
[2023-08-26] MEDS: spironolactone 25 MG tablet PO SCH (22:21)
[2023-08-27] VITALS (17 sets, daily range): BP systolic 109–177; BP diastolic 70–112; PULSE 80–113; RESP 14–22; TEMP 97.3–98.2; O2SAT 90–98
[2023-08-27] MEDS ORDERED: AMI200T PO (04:42)
[2023-08-27] MEDS ORDERED: METO25TA6 PO (04:42)
[2023-08-27] MEDS ORDERED: APIX5TAB3 PO ×2 (04:42→09:03)
[2023-08-27] MEDS ORDERED: FLEC100T PO (04:51)
[2023-08-27] MEDS ORDERED: HYDR50TA46 PO ×2 (04:51→09:08)
[2023-08-27 06:29] LABS: BASOPHILS # (AUTO) 0.1 X10'3 (0-0.2); BASOPHILS % (AUTO) 0.7 % (0-1); EOSINOPHILS # (AUTO) 0.1 X10'3 (0-0.9); EOSINOPHILS % (AUTO) 1.7 % (0-6); HEMATOCRIT 36.7 % (35.0-45.0); LYMPHOCYTES # (AUTO) 0.9 X10'3 (1.1-4.8); LYMPHOCYTES % (AUTO) 10.4 % (21-51); MEAN CORPUSCULAR HEMOGLOBIN 27.8 PG (27.0-31.0); MEAN CORPUSCULAR HGB CONC 32.8 g/dL (33.0-36.5); MEAN CORPUSCULAR VOLUME 84.8 FL (78-98); MEAN PLATELET VOLUME 8.9 FL (7.4-10.4); MONOCYTES # (AUTO) 0.7 X10'3 (0-0.9); MONOCYTES % (AUTO) 9.1 % (2-12); NEUTROPHILS # (AUTO) 6.4 X10'3 (1.8-7.7); NEUTROPHILS % (AUTO) 78.1 % (42-75); PLATELET COUNT 285 X10'3 (140-440); RED BLOOD COUNT 4.33 X10'6 (4.20-5.60); RED CELL DISTRIBUTION WIDTH 16.1 % (11.5-14.5); WHITE BLOOD COUNT 8.2 X10'3 (4.5-11.0)
[2023-08-27 06:34] LABS: APTT 29 SECONDS (22-32); INR 1.1 INR; PROTHROMBIN TIME 11.9 SECONDS (9.0-12.0)
[2023-08-27 06:45] LABS: ALANINE AMINOTRANSFERASE 35 U/L (12-78); ALBUMIN 3.7 G/DL (3.4-5.0); ALBUMIN/GLOBULIN RATIO 1.1 (1.1-1.5); ALKALINE PHOSPHATASE 112 IU/L (46-116); ANION GAP 5 (8-16); ASPARTATE AMINO TRANSFERASE 21 U/L (10-37); BILIRUBIN,TOTAL 0.9 MG/DL (0.1-1.0); BLOOD UREA NITROGEN 18 MG/DL (7-18); BUN/CREATININE RATIO 16.7 (10.0-20.0); CALCIUM 8.6 MG/DL (8.5-10.1); CHLORIDE 103 MMOL/L (99-107); CHOLESTEROL 155 MG/DL (0-200); CREATININE 1.08 MG/DL (0.40-0.90); GLUCOSE 92 MG/DL (70-104); HDL CHOLESTEROL 52 MG/DL (35-60); MAGNESIUM 1.9 MG/DL (1.5-2.4); PHOSPHORUS 4.1 MG/DL (2.3-4.5); POTASSIUM 3.4 MMOL/L (3.5-5.1); SODIUM 144 MMOL/L (135-145); TOTAL CARBON DIOXIDE 35.9 MMOL/L (24-32); eCRCL 41 ML/MIN; eGFR 49 ML/MIN
[2023-08-27 06:46] LABS: FREE T4 (FREE THYROXINE) 1.47 NG/DL (0.73-1.40); LDL CHOLESTEROL 75 MG/DL (50-100); TRIGLYCERIDES 90 MG/DL (20-135)
[2023-08-27] MEDS ORDERED: FLEC100T35 PO (09:03)
[2023-08-27] MEDS: midazolam 1 mg/ML 2ml injection IV ONE ×2 (09:25→10:21)
[2023-08-27] MEDS: morphine 2 MG/ML inj. syringe IV PRN ×2 (09:25→09:56)
[2023-08-27] MEDS: midazolam 1 mg/ML 2ml injection ONE (09:50)
[2023-08-27] MEDS: fentaNYL/PF 50MCG/1 ML 2ML syringe IV ONE (10:21)
[2023-08-27] MEDS: gabapentin 100mg capsule PO SCH (10:51)
[2023-08-27] MEDS: pantoprazole 40mg Tablet.DR PO SCH (10:51)
[2023-08-27] MEDS: lisinopril 20mg tablet PO SCH (10:52)
[2023-08-27] MEDS: PARoxetine 20mg tablet PO SCH (11:15)
[2023-08-27] MEDS: potassium Cl 20 mEq SR tablet PO PRN (11:19)
[2023-08-27] MEDS: flecainide 50mg tablet PO SCH (12:38)
[2023-08-27] MEDS: EMPAGLIFLOZIN 10 MG TABLET PO SCH (12:38)
[2023-08-27] MEDS ORDERED: ondansetron 4mg rapidly disintigrating tab PO PRN (17:17)
[2023-08-28 02:00] VITALS: BP 104/48; PULSE 74; RESP 19; TEMP 97.4; O2SAT 91
[2023-08-28 06:18] LABS: BASOPHILS % (AUTO) 0.4 % (0-1); EOSINOPHILS # (AUTO) 0.1 X10'3 (0-0.9); EOSINOPHILS % (AUTO) 1.4 % (0-6); HEMATOCRIT 38.6 % (35.0-45.0); HEMOGLOBIN 12.9 g/dl (12.0-16.0); LYMPHOCYTES # (AUTO) 0.9 X10'3 (1.1-4.8); LYMPHOCYTES % (AUTO) 10.9 % (21-51); MEAN CORPUSCULAR HGB CONC 33.4 g/dL (33.0-36.5); MEAN CORPUSCULAR VOLUME 83.7 FL (78-98); MEAN PLATELET VOLUME 9.1 FL (7.4-10.4); MONOCYTES # (AUTO) 0.8 X10'3 (0-0.9); MONOCYTES % (AUTO) 9.6 % (2-12); NEUTROPHILS # (AUTO) 6.7 X10'3 (1.8-7.7); NEUTROPHILS % (AUTO) 77.7 % (42-75); PLATELET COUNT 300 X10'3 (140-440); RED BLOOD COUNT 4.61 X10'6 (4.20-5.60); RED CELL DISTRIBUTION WIDTH 16.1 % (11.5-14.5); WHITE BLOOD COUNT 8.6 X10'3 (4.5-11.0)
[2023-08-28 06:25] LABS: APTT 27 SECONDS (22-32); INR 1.1 INR; PROTHROMBIN TIME 11.8 SECONDS (9.0-12.0)
[2023-08-28 06:45] LABS: ALANINE AMINOTRANSFERASE 31 U/L (12-78); ALBUMIN 3.5 G/DL (3.4-5.0); ALKALINE PHOSPHATASE 106 IU/L (46-116); ANION GAP 7 (8-16); ASPARTATE AMINO TRANSFERASE 18 U/L (10-37); BILIRUBIN,TOTAL 0.6 MG/DL (0.1-1.0); BLOOD UREA NITROGEN 24 MG/DL (7-18); BUN/CREATININE RATIO 18.8 (10.0-20.0); CALCIUM 8.7 MG/DL (8.5-10.1); CHLORIDE 101 MMOL/L (99-107); CREATININE 1.28 MG/DL (0.40-0.90); GLUCOSE 102 MG/DL (70-104); MAGNESIUM 1.8 MG/DL (1.5-2.4); PHOSPHORUS 4.6 MG/DL (2.3-4.5); POTASSIUM 3.5 MMOL/L (3.5-5.1); SODIUM 141 MMOL/L (135-145); THYROID STIMULATING HORMONE 2.42 ulU/ml (0.34-4.50); TOTAL PROTEIN 7.1 G/DL (6.4-8.2); eCRCL 34 ML/MIN; eGFR 41 ML/MIN
[2023-08-28] MEDS: digoxin 250mcg/ml 2ml ampule IV ONE (08:40)
[2023-08-28] MEDS: furosemide 40mg/4ml inj IV SCH (08:46)
[2023-08-28] MEDS: metoprolol tartrate 25mg tablet PO SCH (08:47)
[2023-08-28 08:50] VITALS: BP_SYST 131; PULSE 115
[2023-08-28 08:55] LABS: PRO BRAIN NATRIURETIC PEPTIDE 1052 PG/ML (0-450)
[2023-08-28] MEDS ORDERED: FURO-150 PO ×2 (11:01→11:20)
[2023-08-28] MEDS ORDERED: LOP25T PO (11:01)
[2023-08-28] MEDS ORDERED: EMPA10TA PO (11:21)
[2023-08-28] MEDS ORDERED: digoxin 250mcg/ml 2ml ampule IV ONE (14:00)
[2023-08-29] MEDS ORDERED: FURO-150 PO (10:53)
== END 2023-08-28 15:43 | disposition home or self-care (01) | DRG 291 ==
LOC: ER 07:46 → ED HOLD 14:13 → PCU 3S 17:25
PROVIDERS: ADMIT Internal Medicine; ATTEND Internal Medicine
PROC: 5A2204Z Restoration of Cardiac Rhythm, Single (ICD-10-PCS; principal; 2023-08-27)
DX: I11.0 Hypertensive heart disease with heart failure (principal); I50.43 Acute on chronic combined systolic (congestive) and diastolic (congestive) heart failure; I48.0 Paroxysmal atrial fibrillation; I49.5 Sick sinus syndrome; I25.10 Atherosclerotic heart disease of native coronary artery without angina pectoris; E78.00 Pure hypercholesterolemia, unspecified; G62.9 Polyneuropathy, unspecified; K21.9 Gastro-esophageal reflux disease without esophagitis; I34.0 Nonrheumatic mitral (valve) insufficiency; Z96.652 Presence of left artificial knee joint; G89.29 Other chronic pain; F32.A Depression, unspecified; Z79.01 Long term (current) use of anticoagulants; Z79.899 Other long term (current) drug therapy; I25.2 Old myocardial infarction; Z95.0 Presence of cardiac pacemaker; Z90.710 Acquired absence of both cervix and uterus; Z98.891 History of uterine scar from previous surgery; Z85.820 Personal history of malignant melanoma of skin; Z87.891 Personal history of nicotine dependence; Z86.16 Personal history of COVID-19
CPT/HCPCS: 36415; 71045; 80053; 80061; 83735; 83880; 84100; 84439; 84443; 84484; 85025; 85610; 85730; 87081; 92960; 93005; 94760; 96374; 96375; 99285; A4615; C9113; G0378; J1160; J1940; J2060; J2250; J2270; J2405; J3490; J7030

== ENCOUNTER 2024-01-24 10:41 | Emergency (ER) | payer MEDICARE, OTHER ==
[~2024-01-24] VITALS: Ht 165.1 cm; Wt 92.0 kg
[~2024-01-24 10:41] MED LIST changes: -AMIO200T27 PO; +EMPA10TA PO; +FLEC100T PO; +FLEC100T35 PO; +FURO-150 PO; +HYDR50TA46 PO; +LOP25T PO; -METO50TA17 PO
[2024-01-24 10:55] VITALS: TEMP 98
[2024-01-24 11:20] LABS: BASOPHILS % (AUTO) 0.3 % (0-1); EOSINOPHILS # (AUTO) 0.2 X10'3 (0-0.9); MONOCYTES # (AUTO) 0.8 X10'3 (0-0.9)
[2024-01-24 11:22] LABS: HEMATOCRIT 35.2 % (35.0-45.0); HEMOGLOBIN 11.5 g/dl (12.0-16.0); LYMPHOCYTES # (AUTO) 0.9 X10'3 (1.1-4.8); LYMPHOCYTES % (AUTO) 9.3 % (21-51); MEAN CORPUSCULAR HEMOGLOBIN 27.3 PG (27.0-31.0); MEAN CORPUSCULAR HGB CONC 32.8 g/dL (33.0-36.5); MEAN CORPUSCULAR VOLUME 83.2 FL (78-98); MEAN PLATELET VOLUME 8.8 FL (7.4-10.4); MONOCYTES % (AUTO) 8.8 % (2-12); NEUTROPHILS # (AUTO) 7.7 X10'3 (1.8-7.7); NEUTROPHILS % (AUTO) 79.6 % (42-75); PLATELET COUNT 260 X10'3 (140-440); RED BLOOD COUNT 4.23 X10'6 (4.20-5.60); RED CELL DISTRIBUTION WIDTH 18.2 % (11.5-14.5); WHITE BLOOD COUNT 9.7 X10'3 (4.5-11.0)
[2024-01-24 11:37] LABS: ALBUMIN 3.3 G/DL (3.4-5.0); ANION GAP 6 (8-16); BLOOD UREA NITROGEN 8 MG/DL (7-18); BUN/CREATININE RATIO 9.8 (10.0-20.0); CALCIUM 9.1 MG/DL (8.5-10.1); CHLORIDE 99 MMOL/L (99-107); CREATININE 0.82 MG/DL (0.40-0.90); GLUCOSE 108 MG/DL (70-104); POTASSIUM 3.4 MMOL/L (3.5-5.1); PRO BRAIN NATRIURETIC PEPTIDE 2811 PG/ML (0-450); SODIUM 136 MMOL/L (135-145); TOTAL CARBON DIOXIDE 30.6 MMOL/L (24-32); eCRCL 53 ML/MIN; eGFR 68 ML/MIN
[2024-01-24 13:38] LABS: ANISOCYTOSIS 2+; BURR CELLS FEW; ELLIPTOCYTES 2+; PLATELET ESTIMATE NORMAL; SCHISTOCYTES FEW
[2024-01-24 14:39] VITALS: BP 171/76; PULSE 62; RESP 17; O2SAT 95
== END 2024-01-24 14:42 | disposition home or self-care (01) ==
LOC: ER 10:41
DX: I49.8 Other specified cardiac arrhythmias (principal); G62.9 Polyneuropathy, unspecified; I48.91 Unspecified atrial fibrillation; I25.10 Atherosclerotic heart disease of native coronary artery without angina pectoris; I11.0 Hypertensive heart disease with heart failure; I50.9 Heart failure, unspecified; I25.2 Old myocardial infarction; K21.9 Gastro-esophageal reflux disease without esophagitis; F32.A Depression, unspecified; Z79.899 Other long term (current) drug therapy; Z95.810 Presence of automatic (implantable) cardiac defibrillator
CPT/HCPCS: 36415; 71045; 80048; 83880; 84484; 85008; 85025; 93005; 99285

== ENCOUNTER 2024-01-27 03:39 | Inpatient (IN) | payer MEDICARE, OTHER ==
[~2024-01-27] VITALS: Ht 165.1 cm; Wt 85.2 kg
[2024-01-27] MEDS ORDERED: amiodarone 50MG/ML inj IV ONE ×2 (03:45→09:00)
[2024-01-27] MEDS: amiodarone 150mg/dext, iso-os 100 ML IV ONE (03:57)
[2024-01-27] MEDS: aspirin 81mg tab.chew PO ONE (04:01)
[2024-01-27] MEDS: amiodarone/D5 360MG/200ML BAG 200 ML IV SCH (04:07)
[2024-01-27 04:08] LABS: BASOPHILS % (AUTO) 0.5 % (0-1); EOSINOPHILS % (AUTO) 0.2 % (0-6); HEMATOCRIT 34.9 % (35.0-45.0); HEMOGLOBIN 11.2 g/dl (12.0-16.0); LYMPHOCYTES # (AUTO) 0.5 X10'3 (1.1-4.8); LYMPHOCYTES % (AUTO) 4.8 % (21-51); MEAN CORPUSCULAR HEMOGLOBIN 26.5 PG (27.0-31.0); MEAN CORPUSCULAR VOLUME 82.8 FL (78-98); MEAN PLATELET VOLUME 8.8 FL (7.4-10.4); MONOCYTES # (AUTO) 0.7 X10'3 (0-0.9); MONOCYTES % (AUTO) 6.3 % (2-12); NEUTROPHILS # (AUTO) 9.3 X10'3 (1.8-7.7); NEUTROPHILS % (AUTO) 88.2 % (42-75); PLATELET COUNT 216 X10'3 (140-440); RED BLOOD COUNT 4.22 X10'6 (4.20-5.60); RED CELL DISTRIBUTION WIDTH 17.9 % (11.5-14.5); WHITE BLOOD COUNT 10.6 X10'3 (4.5-11.0)
[2024-01-27 04:23] LABS: ALBUMIN 3.4 G/DL (3.4-5.0); ANION GAP 10 (8-16); BLOOD UREA NITROGEN 8 MG/DL (7-18); CALCIUM 8.7 MG/DL (8.5-10.1); CHLORIDE 100 MMOL/L (99-107); GLUCOSE 144 MG/DL (70-104); POTASSIUM 3.5 MMOL/L (3.5-5.1); PRO BRAIN NATRIURETIC PEPTIDE 10490 PG/ML (0-450); SODIUM 138 MMOL/L (135-145); TOTAL CARBON DIOXIDE 28.2 MMOL/L (24-32); eCRCL 43 ML/MIN; eGFR 54 ML/MIN
[2024-01-27] MEDS: metoprolol tartrate 1mg/ml inj IV ONE (06:00)
[2024-01-27] MEDS: magnesium sulf-water 2g/50mL 50 ML IV ONE ×3 (06:41→10:54)
[2024-01-27] MEDS ORDERED: potassium Cl 40MEQ/1/2NS 520ml 520 ML IV PRN (10:15)
[2024-01-27] MEDS ORDERED: magnesium sulf-water 4G/100mL 100 ML IV PRN (10:15)
[2024-01-27] MEDS ORDERED: potassium Cl 40MEQ/270ML bag 250 ML IV PRN (10:15)
[2024-01-27] MEDS ORDERED: HYDROcodone/acetaminophen 5mg/325mg tablet PO PRN (10:15)
[2024-01-27] MEDS ORDERED: potassium CL 10mEq/100ml bag 100 ML IV PRN (10:15)
[2024-01-27] MEDS ORDERED: bisacodyl 10mg suppository rectal RC PRN (10:15)
[2024-01-27] MEDS: PERFLUTREN PROTEIN-A MICROSPHR (Optison) 0.22 MG/ML 3ML VIAL IV ONE (10:21)
[2024-01-27] MEDS: amiodarone 50MG/ML inj IV ONE (10:31)
[2024-01-27] MEDS: LIDOcaine 2% (20 mg/ml) 5ml cardiac syringe IV STA ×2 (10:55→11:45)
[2024-01-27] MEDS: metoprolol tartrate 1mg/ml inj IV SCH (10:55)
[2024-01-27] MEDS: potassium CL 10mEq/100ml bag 100 ML IV SCH (11:13)
[2024-01-27 11:15] LABS: MAGNESIUM 2.6 MG/DL (1.5-2.4)
[2024-01-27] MEDS: acetaminophen 325mg tablet PO PRN (11:15)
[2024-01-27] MEDS: LidoCAINE 2% Topical Jelly 11mL syringe (UROJET) TOP ONE (11:34)
[2024-01-27] MEDS: metoprolol tartrate 50mg tablet PO ONE (11:57)
[2024-01-27] MEDS: LIDOcaine 2 gm/250ml D5W 250 ML IV SCH (12:01)
[2024-01-27] MEDS ORDERED: acetaminophen 325mg tablet PO PRN ×2 (12:15)
[2024-01-27] MEDS ORDERED: morphine 4 MG/ML inj SYRINge IV PRN (12:15)
[2024-01-27] MEDS ORDERED: sodium phosphate inj. 15 MMOL in dextrose 5%-water 250 ML IV PRN (12:15)
[2024-01-27] MEDS ORDERED: Neutra Phos packet PO PRN (12:15)
[2024-01-27] MEDS ORDERED: sodium phosphate inj. 30 MMOL in dextrose 5%-water 250 ML IV PRN (12:15)
[2024-01-27] MEDS ORDERED: morphine 2 MG/ML inj. syringe IV PRN (12:15)
[2024-01-27] MEDS ORDERED: ondansetron/PF 4mg/2ml inj IV PRN (12:15)
[2024-01-27 13:24] VITALS: PULSE 70; RESP 25; O2SAT 97
[2024-01-27 14:25] VITALS: PULSE 71; RESP 17; O2SAT 96
[2024-01-27] MEDS: ipratropium 0.5 MG/2.5ML nebule NEB PRN (14:25)
[2024-01-27 14:30] VITALS: PULSE 70; RESP 14
[2024-01-27] MEDS: budesonide 0.5mg/2ml UD nebule IH SCH (15:30)
[2024-01-27] MEDS: CefTRIAXone/D5W-Rocephin 1gm 50 ML IV ONE (15:33)
[2024-01-27] MEDS: furosemide 10 MG/1 ML 10ml inj IV SCH (15:47)
[2024-01-27 16:35] LABS: BILIRUBIN,URINE NEGATIVE (Neg); CLARITY,URINE CLEAR (Clear); COLOR,URINE STRAW (Yellow); GLUCOSE, URINE >=1000 mg/dl (Neg); KETONES,URINE NEGATIVE (Neg); LEUKOCYTE ESTERASE ,URINE NEGATIVE (Neg); NITRITES, URINE NEGATIVE (Neg); OCCULT BLOOD,URINE SMALL (Neg); PROTEIN,URINE NEGATIVE (Neg); UROBILINOGEN,URINE 0.2 E.U/dL (0.2-1.0)
[2024-01-27] MEDS ORDERED: EMPA10TA PO (16:42)
[2024-01-27] MEDS ORDERED: LOP12.5T PO (16:42)
[2024-01-27] MEDS ORDERED: FURO20TA4 PO (16:42)
[2024-01-27 16:44] LABS: UA COLLECTION TYPE CLN CATCH MIDSTREAM
[2024-01-27 16:46] LABS: SQUAMOUS EPITHELIAL CELL,UR FEW /LPF (FEW)
[2024-01-27 16:47] LABS: BACTERIA,URINE FEW /HPF (Neg); RBC,URINE 0-2 /HPF (0-2); WBC,URINE 0-4 /HPF (0-4)
[2024-01-27 16:59] LABS: FREE T4 (FREE THYROXINE) 1.59 NG/DL (0.73-1.40); THYROID STIMULATING HORMONE 1.45 ulU/ml (0.34-4.50)
[2024-01-27] MEDS: hydrALAZINE 20mg/ml inj. IV PRN (17:43)
[2024-01-27] MEDS: apixaban 5mg tablet PO SCH (19:20)
[2024-01-27] MEDS: metoprolol tartrate 50mg tablet PO SCH (19:21)
[2024-01-27] MEDS: docusate sod 100mg capsule PO SCH (19:21)
[2024-01-27] MEDS ORDERED: docusate sod 100mg capsule PO SCH (20:00)
[2024-01-27] MEDS: ondansetron/PF 4mg/2ml inj IV PRN (20:10)
[2024-01-27] MEDS: ibuprofen tablet 400 MG TABLET PO ONE (21:23)
[2024-01-27] MEDS: ketorolac trometh 30MG/ML vial 30 MG/ML VIAL IV ONE (21:29)
[2024-01-27 22:20] VITALS: PULSE 70; RESP 20; O2SAT 95
[2024-01-27] MEDS: piperacillin/tazo 3.375gm/50ml 50 ML IV SCH (22:23)
[2024-01-27] MEDS: oseltamivir phos 75mg capsule PO SCH (22:27)
[2024-01-27 23:45] VITALS: BP 149/81; PULSE 70; RESP 22; O2SAT 96
[2024-01-28] VITALS (26 sets, daily range): BP systolic 123–165; BP diastolic 62–93; PULSE 69–74; RESP 16–30; O2SAT 91–99
[2024-01-28] MEDS: piperacillin/tazo 3.375gm/50ml 50 ML IV SCH (04:53)
[2024-01-28 06:18] LABS: BASOPHILS % (AUTO) 0.4 % (0-1); EOSINOPHILS % (AUTO) 0.1 % (0-6); HEMATOCRIT 34.8 % (35.0-45.0); HEMOGLOBIN 11.6 g/dl (12.0-16.0); LYMPHOCYTES # (AUTO) 0.6 X10'3 (1.1-4.8); LYMPHOCYTES % (AUTO) 9.4 % (21-51); MEAN CORPUSCULAR HEMOGLOBIN 27.4 PG (27.0-31.0); MEAN CORPUSCULAR HGB CONC 33.2 g/dL (33.0-36.5); MEAN CORPUSCULAR VOLUME 82.6 FL (78-98); MONOCYTES # (AUTO) 0.4 X10'3 (0-0.9); MONOCYTES % (AUTO) 6.7 % (2-12); NEUTROPHILS % (AUTO) 83.4 % (42-75); PLATELET COUNT 195 X10'3 (140-440); RED BLOOD COUNT 4.21 X10'6 (4.20-5.60); WHITE BLOOD COUNT 5.9 X10'3 (4.5-11.0)
[2024-01-28 06:29] LABS: ALANINE AMINOTRANSFERASE 12 U/L (12-78); ALBUMIN 3.3 G/DL (3.4-5.0); ALBUMIN/GLOBULIN RATIO 0.9 (1.1-1.5); ALKALINE PHOSPHATASE 104 IU/L (46-116); ANION GAP 9 (8-16); ASPARTATE AMINO TRANSFERASE 18 U/L (10-37); BILIRUBIN,TOTAL 0.8 MG/DL (0.1-1.0); BLOOD UREA NITROGEN 15 MG/DL (7-18); BUN/CREATININE RATIO 16.7 (10.0-20.0); CALCIUM 8.9 MG/DL (8.5-10.1); CHLORIDE 93 MMOL/L (99-107); GLUCOSE 89 MG/DL (70-104); MAGNESIUM 2.4 MG/DL (1.5-2.4); PHOSPHORUS 4.2 MG/DL (2.3-4.5); POTASSIUM 3.4 MMOL/L (3.5-5.1); SODIUM 131 MMOL/L (135-145); TOTAL CARBON DIOXIDE 28.9 MMOL/L (24-32); TOTAL PROTEIN 7.1 G/DL (6.4-8.2); eCRCL 48 ML/MIN; eGFR 61 ML/MIN
[2024-01-28 07:04] LABS: ANISOCYTOSIS 1+; ELLIPTOCYTES 1+; PLATELET ESTIMATE NORMAL
[2024-01-28 07:05] LABS: ACANTHOCYTES FEW; BURR CELLS FEW
[2024-01-28 07:06] LABS: SCHISTOCYTES FEW
[2024-01-28 07:07] LABS: LARGE PLATELETS FEW
[2024-01-28] MEDS: magnesium sulf-water 2g/50mL 50 ML IV PRN (07:12)
[2024-01-28] MEDS: potassium Cl 20mEq/100mL bag 100 ML IV PRN (07:12)
[2024-01-28] MEDS: potassium Cl 20 mEq SR tablet PO PRN (07:49)
[2024-01-28] MEDS: amiodarone 200mg tablet PO SCH (07:49)
[2024-01-28] MEDS ORDERED: CefTRIAXone/D5W-Rocephin 1gm 50 ML IV SCH (08:00)
[2024-01-28] MEDS ORDERED: AMIO200T72 PO (10:35)
[2024-01-28] MEDS: acetaminophen 325mg tablet PO PRN (11:41)
[2024-01-28] MEDS: enoxaparin 40mg/0.4ml syringe SUBCUT ONE (20:03)
[2024-01-28] MEDS: atorvastatin 20mg tablet PO SCH (20:12)
[2024-01-29] VITALS (27 sets, daily range): BP systolic 113–166; BP diastolic 55–102; PULSE 69–79; RESP 13–29; TEMP 97–97.3; O2SAT 91–99
[2024-01-29 07:22] LABS: BASOPHILS % (AUTO) 0.2 % (0-1); EOSINOPHILS % (AUTO) 0.5 % (0-6); HEMOGLOBIN 11.8 g/dl (12.0-16.0); LYMPHOCYTES # (AUTO) 0.6 X10'3 (1.1-4.8); LYMPHOCYTES % (AUTO) 12.1 % (21-51); MEAN CORPUSCULAR HEMOGLOBIN 27.5 PG (27.0-31.0); MEAN CORPUSCULAR HGB CONC 33.6 g/dL (33.0-36.5); MEAN CORPUSCULAR VOLUME 81.9 FL (78-98); MEAN PLATELET VOLUME 8.9 FL (7.4-10.4); MONOCYTES # (AUTO) 0.4 X10'3 (0-0.9); MONOCYTES % (AUTO) 8.1 % (2-12); NEUTROPHILS % (AUTO) 79.1 % (42-75); PLATELET COUNT 213 X10'3 (140-440); RED BLOOD COUNT 4.27 X10'6 (4.20-5.60); RED CELL DISTRIBUTION WIDTH 17.7 % (11.5-14.5); WHITE BLOOD COUNT 5.1 X10'3 (4.5-11.0)
[2024-01-29] MEDS: EMPAGLIFLOZIN 10 MG TABLET PO SCH (07:22)
[2024-01-29 07:33] LABS: ALANINE AMINOTRANSFERASE 17 U/L (12-78); ALBUMIN 3.1 G/DL (3.4-5.0); ALBUMIN/GLOBULIN RATIO 0.8 (1.1-1.5); ALKALINE PHOSPHATASE 96 IU/L (46-116); ANION GAP 5 (8-16); ASPARTATE AMINO TRANSFERASE 19 U/L (10-37); BILIRUBIN,TOTAL 0.7 MG/DL (0.1-1.0); BLOOD UREA NITROGEN 17 MG/DL (7-18); BUN/CREATININE RATIO 19.3 (10.0-20.0); CALCIUM 8.9 MG/DL (8.5-10.1); CHLORIDE 97 MMOL/L (99-107); CREATININE 0.88 MG/DL (0.40-0.90); GLUCOSE 90 MG/DL (70-104); MAGNESIUM 2.3 MG/DL (1.5-2.4); PHOSPHORUS 3.4 MG/DL (2.3-4.5); POTASSIUM 4.8 MMOL/L (3.5-5.1); SODIUM 134 MMOL/L (135-145); TOTAL CARBON DIOXIDE 31.7 MMOL/L (24-32); TOTAL PROTEIN 6.9 G/DL (6.4-8.2); eCRCL 49 ML/MIN; eGFR 62 ML/MIN
[2024-01-29] MEDS: furosemide 40mg/4ml inj IV SCH (07:45)
[2024-01-29] MEDS ORDERED: lisinopril 20mg tablet PO SCH (08:40)
[2024-01-29] MEDS ORDERED: fentaNYL/PF 50MCG/1 ML 2ML syringe ONE (14:47)
[2024-01-29] MEDS ORDERED: midazolam 1 mg/ML 2ml injection ONE ×2 (14:47→15:53)
[2024-01-29] MEDS ORDERED: iohexol 350 MG/ML 50ML vial IV ONE (14:47)
[2024-01-29] MEDS ORDERED: iohexol 350MG/ML 100ml bottle IV ONE (14:47)
[2024-01-29] MEDS ORDERED: verapamil 2.5 mg/ml inj IV ONE (14:47)
[2024-01-29] MEDS ORDERED: LIDOcaine 1% 30ml preserv. free vial ONE (14:47)
[2024-01-29] MEDS ORDERED: heparin 1,000unit/ml 10ml vial 10 ML ONE (14:47)
[2024-01-29] MEDS ORDERED: heparin 25,000 UNIT/250ml bag 0 ML IV ONE (14:47)
[2024-01-29] MEDS ORDERED: nitroGLYCERIN 500mcg/5mL D5W 5 ML IV ONE (14:48)
[2024-01-29] MEDS ORDERED: diphenhydrAMINE 50 mg/ml inj ONE (15:55)
[2024-01-29] MEDS: normal saline 1000ml 1,000 ML IV ONE (17:32)
[2024-01-29] MEDS: mag hydrox/Alum hydrox/simeth 30ml oral suspension PO PRN (22:04)
[2024-01-29] MEDS: lactulose 20gm/30ml cup PO SCH (22:04)
[2024-01-29] MEDS: hydrALAZINE 25 MG tablet PO SCH (22:08)
[2024-01-29] MEDS: spironolactone 25 MG tablet PO SCH (22:08)
[2024-01-30] VITALS (10 sets, daily range): BP systolic 138–159; BP diastolic 62–78; PULSE 70–82; RESP 11–18; TEMP 96.9–98; O2SAT 93–98
[2024-01-30 07:32] LABS: BASOPHILS % (AUTO) 0.3 % (0-1); EOSINOPHILS % (AUTO) 0.8 % (0-6); HEMATOCRIT 34.8 % (35.0-45.0); HEMOGLOBIN 11.3 g/dl (12.0-16.0); LYMPHOCYTES # (AUTO) 0.9 X10'3 (1.1-4.8); MEAN CORPUSCULAR HEMOGLOBIN 26.9 PG (27.0-31.0); MEAN CORPUSCULAR HGB CONC 32.5 g/dL (33.0-36.5); MEAN CORPUSCULAR VOLUME 82.8 FL (78-98); MEAN PLATELET VOLUME 9.1 FL (7.4-10.4); MONOCYTES # (AUTO) 0.5 X10'3 (0-0.9); MONOCYTES % (AUTO) 8.5 % (2-12); NEUTROPHILS # (AUTO) 4.1 X10'3 (1.8-7.7); NEUTROPHILS % (AUTO) 73.4 % (42-75); PLATELET COUNT 215 X10'3 (140-440); WHITE BLOOD COUNT 5.6 X10'3 (4.5-11.0)
[2024-01-30 07:44] LABS: ALANINE AMINOTRANSFERASE 14 U/L (12-78); ALBUMIN 2.9 G/DL (3.4-5.0); ALBUMIN/GLOBULIN RATIO 0.8 (1.1-1.5); ALKALINE PHOSPHATASE 86 IU/L (46-116); ANION GAP 6 (8-16); ASPARTATE AMINO TRANSFERASE 25 U/L (10-37); BILIRUBIN,TOTAL 0.6 MG/DL (0.1-1.0); BLOOD UREA NITROGEN 15 MG/DL (7-18); BUN/CREATININE RATIO 17.6 (10.0-20.0); CALCIUM 8.4 MG/DL (8.5-10.1); CHLORIDE 98 MMOL/L (99-107); CREATININE 0.85 MG/DL (0.40-0.90); GLUCOSE 84 MG/DL (70-104); MAGNESIUM 1.9 MG/DL (1.5-2.4); PHOSPHORUS 3.4 MG/DL (2.3-4.5); POTASSIUM 4.2 MMOL/L (3.5-5.1); SODIUM 134 MMOL/L (135-145); TOTAL CARBON DIOXIDE 30.4 MMOL/L (24-32); TOTAL PROTEIN 6.5 G/DL (6.4-8.2); eCRCL 51 ML/MIN; eGFR 65 ML/MIN
[2024-01-30] MEDS ORDERED: spironolactone 25 MG tablet PO SCH (08:30)
[2024-01-30] MEDS: cholecalciferol (vitamin D3) 1,000 unit (25mcg) tablet PO SCH (09:01)
[2024-01-30] MEDS: amiodarone 200mg tablet PO SCH (09:01)
[2024-01-30] MEDS: lisinopril 20mg tablet PO SCH (09:03)
[2024-01-30] MEDS: gabapentin 100mg capsule PO SCH (09:03)
[2024-01-30] MEDS: pantoprazole 40mg Tablet.DR PO SCH (09:04)
[2024-01-30] MEDS: PARoxetine 20mg tablet PO SCH (10:50)
[2024-01-30 11:28] LABS: PRO BRAIN NATRIURETIC PEPTIDE 992 PG/ML (0-450)
[2024-01-30] MEDS: guaiFENesin/DM 10ml UD oral syrup PO PRN (12:00)
[2024-01-30] MEDS: methylPREDNISolone sod succ 125mg/2ml vial IV STA (15:05)
[2024-01-30] MEDS: methylPREDNISolone sod succ 125mg/2ml vial IV SCH (19:44)
[2024-01-31] VITALS (10 sets, daily range): BP systolic 95–189; BP diastolic 50–90; PULSE 68–77; RESP 15–20; TEMP 97.1–97.9; O2SAT 20–98
[2024-01-31 07:05] LABS: BASOPHILS % (AUTO) 0.1 % (0-1); EOSINOPHILS % (AUTO) 0 % (0-6); HEMATOCRIT 36.3 % (35.0-45.0); HEMOGLOBIN 11.8 g/dl (12.0-16.0); LYMPHOCYTES # (AUTO) 0.7 X10'3 (1.1-4.8); LYMPHOCYTES % (AUTO) 22.9 % (21-51); MEAN CORPUSCULAR HEMOGLOBIN 26.8 PG (27.0-31.0); MEAN CORPUSCULAR HGB CONC 32.4 g/dL (33.0-36.5); MEAN CORPUSCULAR VOLUME 82.7 FL (78-98); MONOCYTES # (AUTO) 0.1 X10'3 (0-0.9); MONOCYTES % (AUTO) 4.4 % (2-12); NEUTROPHILS # (AUTO) 2.1 X10'3 (1.8-7.7); NEUTROPHILS % (AUTO) 72.6 % (42-75); PLATELET COUNT 224 X10'3 (140-440); RED BLOOD COUNT 4.39 X10'6 (4.20-5.60); RED CELL DISTRIBUTION WIDTH 17.4 % (11.5-14.5); WHITE BLOOD COUNT 2.9 X10'3 (4.5-11.0)
[2024-01-31 07:24] LABS: ALANINE AMINOTRANSFERASE 13 U/L (12-78); ALBUMIN 3.2 G/DL (3.4-5.0); ALBUMIN/GLOBULIN RATIO 0.8 (1.1-1.5); ALKALINE PHOSPHATASE 94 IU/L (46-116); ANION GAP 9 (8-16); ASPARTATE AMINO TRANSFERASE 19 U/L (10-37); BILIRUBIN,TOTAL 0.7 MG/DL (0.1-1.0); BLOOD UREA NITROGEN 14 MG/DL (7-18); BUN/CREATININE RATIO 17.3 (10.0-20.0); CALCIUM 9.6 MG/DL (8.5-10.1); CHLORIDE 97 MMOL/L (99-107); CREATININE 0.81 MG/DL (0.40-0.90); GLUCOSE 138 MG/DL (70-104); POTASSIUM 4.6 MMOL/L (3.5-5.1); SODIUM 133 MMOL/L (135-145); TOTAL CARBON DIOXIDE 27.4 MMOL/L (24-32); TOTAL PROTEIN 7.3 G/DL (6.4-8.2); eCRCL 53 ML/MIN; eGFR 69 ML/MIN
[2024-01-31 10:02] LABS: TOTAL CELLS COUNTED 100
[2024-01-31 10:03] LABS: ANISOCYTOSIS 1+; BURR CELLS 2+; PLATELET ESTIMATE NORMAL; POIKILOCYTOSIS 2+; SCHISTOCYTES FEW
[2024-01-31] MEDS: HYDROcodone/acetaminophen 10/325mg tab PO PRN (10:03)
[2024-01-31 10:04] LABS: ELLIPTOCYTES 1+
[2024-01-31] MEDS: furosemide 20MG tablet PO PRN (10:05)
[2024-01-31] MEDS ORDERED: ondansetron 4mg rapidly disintigrating tab PO PRN (15:22)
[2024-01-31] MEDS: guaiFENesin ER 600mg tablet PO SCH (20:00)
[2024-02-01] VITALS (13 sets, daily range): BP systolic 128–181; BP diastolic 58–77; PULSE 65–87; RESP 13–20; TEMP 96.9–98.9; O2SAT 92–98
[2024-02-01 06:38] LABS: BASOPHILS % (AUTO) 0.1 % (0-1); EOSINOPHILS % (AUTO) 0 % (0-6); HEMATOCRIT 36.9 % (35.0-45.0); HEMOGLOBIN 12.2 g/dl (12.0-16.0); LYMPHOCYTES # (AUTO) 0.9 X10'3 (1.1-4.8); LYMPHOCYTES % (AUTO) 12.5 % (21-51); MEAN CORPUSCULAR HEMOGLOBIN 26.7 PG (27.0-31.0); MEAN CORPUSCULAR HGB CONC 32.9 g/dL (33.0-36.5); MEAN PLATELET VOLUME 8.7 FL (7.4-10.4); MONOCYTES # (AUTO) 0.4 X10'3 (0-0.9); MONOCYTES % (AUTO) 4.7 % (2-12); NEUTROPHILS # (AUTO) 6.3 X10'3 (1.8-7.7); NEUTROPHILS % (AUTO) 82.7 % (42-75); PLATELET COUNT 266 X10'3 (140-440); RED BLOOD COUNT 4.56 X10'6 (4.20-5.60); RED CELL DISTRIBUTION WIDTH 17.5 % (11.5-14.5); WHITE BLOOD COUNT 7.6 X10'3 (4.5-11.0)
[2024-02-01 06:57] LABS: ALANINE AMINOTRANSFERASE 17 U/L (12-78); ALBUMIN 3.5 G/DL (3.4-5.0); ALBUMIN/GLOBULIN RATIO 0.9 (1.1-1.5); ALKALINE PHOSPHATASE 89 IU/L (46-116); ANION GAP 9 (8-16); ASPARTATE AMINO TRANSFERASE 22 U/L (10-37); BILIRUBIN,TOTAL 0.6 MG/DL (0.1-1.0); BLOOD UREA NITROGEN 19 MG/DL (7-18); BUN/CREATININE RATIO 20.4 (10.0-20.0); CALCIUM 9.3 MG/DL (8.5-10.1); CHLORIDE 97 MMOL/L (99-107); CREATININE 0.93 MG/DL (0.40-0.90); GLUCOSE 131 MG/DL (70-104); MAGNESIUM 2.2 MG/DL (1.5-2.4); PHOSPHORUS 4.3 MG/DL (2.3-4.5); POTASSIUM 4.2 MMOL/L (3.5-5.1); SODIUM 134 MMOL/L (135-145); TOTAL CARBON DIOXIDE 27.8 MMOL/L (24-32); TOTAL PROTEIN 7.5 G/DL (6.4-8.2); eCRCL 46 ML/MIN; eGFR 59 ML/MIN
[2024-02-01] MEDS: lactose-reduced food (Ensure High Protein) 237ml bottle PO SCH (18:18)
[2024-02-02 02:00] VITALS: BP 136/54; PULSE 71; RESP 16; TEMP 97.6; O2SAT 94
[2024-02-02 06:00] VITALS: BP 166/88; PULSE 73; RESP 16; TEMP 97.6; O2SAT 95
[2024-02-02 08:00] VITALS: RESP 16; O2SAT 97
[2024-02-02 08:30] VITALS: PULSE 70; RESP 16; O2SAT 96
[2024-02-02 08:35] VITALS: PULSE 70; RESP 18
[2024-02-02 11:00] VITALS: BP 147/73; PULSE 71; PULSE 74; RESP 16; RESP 19; TEMP 97; TEMP 98; O2SAT 95; O2SAT 97
== END 2024-02-02 15:30 | disposition home or self-care (01) | DRG 871 ==
LOC: ER 03:40 → UNDOADMIN 10:18 → ED HOLD 10:18 → CICU 2S 23:18 → ED HOLD 23:18 → PCU 3S 01-29 16:31
PROVIDERS: ADMIT Family Medicine; ATTEND Family Medicine
PROC: 4B02XTZ Measurement of Cardiac Defibrillator, External Approach (ICD-10-PCS; principal; 2024-01-27)
PROC: 4A023N7 Measurement of Cardiac Sampling and Pressure, Left Heart, Percutaneous Approach (ICD-10-PCS; 2024-01-30)
PROC: B2151ZZ Fluoroscopy of Left Heart using Low Osmolar Contrast (ICD-10-PCS; 2024-01-30)
DX: A41.9 Sepsis, unspecified organism (principal); I50.43 Acute on chronic combined systolic (congestive) and diastolic (congestive) heart failure; J96.01 Acute respiratory failure with hypoxia; I47.20 Ventricular tachycardia, unspecified; I47.21 Torsades de pointes; E87.1 Hypo-osmolality and hyponatremia; I42.0 Dilated cardiomyopathy; I25.10 Atherosclerotic heart disease of native coronary artery without angina pectoris; I11.0 Hypertensive heart disease with heart failure; E78.00 Pure hypercholesterolemia, unspecified; E87.6 Hypokalemia; Z20.822 Contact with and (suspected) exposure to COVID-19; E88.09 Other disorders of plasma-protein metabolism, not elsewhere classified; G89.29 Other chronic pain; I25.2 Old myocardial infarction; I27.20 Pulmonary hypertension, unspecified; D69.6 Thrombocytopenia, unspecified; I48.0 Paroxysmal atrial fibrillation; K59.00 Constipation, unspecified; K21.9 Gastro-esophageal reflux disease without esophagitis; I49.5 Sick sinus syndrome; J10.1 Influenza due to other identified influenza virus with other respiratory manifestations; Z74.09 Other reduced mobility; Z78.9 Other specified health status; Z79.01 Long term (current) use of anticoagulants; Z82.49 Family history of ischemic heart disease and other diseases of the circulatory system; Z85.820 Personal history of malignant melanoma of skin; Z86.16 Personal history of COVID-19; Z90.710 Acquired absence of both cervix and uterus; Z95.810 Presence of automatic (implantable) cardiac defibrillator; Z63.4 Disappearance and death of family member
CPT/HCPCS: 36415; 71045; 74018; 76937; 80048; 80053; 80176; 81001; 83605; 83735; 83880; 84100; 84132; 84439; 84443; 84484; 85007; 85008; 85025; 87040; 87081; 87502; 87503; 87811; 93005; 93306; 93458; 94640; 94664; 94668; 94760; 96365; 96367; 96375; 97110; 97116; 97161; 97530; 99152; 99153; 99285; 99291; A4615; A6222; A6258; C1725; C1758; C1894; G0378; J0282; J0360; J0696; J1200; J1644; J1650; J1885; J1940; J2001; J2250; J2405; J2543; J2919; J3010; J3480; J3490; J7030; J7040; Q9967